=== PATIENT | male | born 1935 | race Caucasian/White ===

== ENCOUNTER 2023-11-28 22:30 | Inpatient (IN) | payer MEDICARE, BC ==
[~2023-11-28] VITALS: Ht 180.3 cm; Wt 93.5 kg
[2023-11-28 23:33] VITALS: BP 145/76; PULSE 91; TEMP 98.1
[2023-11-28] MEDS ORDERED: hydrALAZINE 20 MG/ML 1 ML VIAL IV PRN (23:45)
[2023-11-28] MEDS ORDERED: Acetaminophen 325 MG TAB PO PRN (23:45)
[2023-11-28] MEDS ORDERED: Ondansetron 4 MG/2 ML VIAL IV PRN (23:45)
--- NOTE | 2023-11-28 23:49 | NUR ---
PT ADMITTED TO ROOM 343. PER EMS CART. A&OX4. CBI INFUSING TO 3WAY CATHETER. DARK RED BLOOD WITH SMALL CLOTS. NS IRRIGATION INFUSING AT STEADY PACE. IV LFA. NS INFUSING NOW AR 75CC/HR. NAUSEATED X2 1 BROWNISH EMESIS. ORIENTED TO ROOM. CALL LIGHT. BED ALARMS, PHONE. DAUGHTER / FRIEND NOW HERE. PT DENIES PAIN AT PRESENT TIME. CALL LIGHT IN REACH. BED ALARM SET.
[2023-11-28] MEDS ORDERED: SYNTHROID0.088 MG/T PO (23:56)
[2023-11-28] MEDS ORDERED: LIPITOR 10MG10 MG PO (23:58)
[2023-11-29] VITALS (18 sets, daily range): BP systolic 120–150; BP diastolic 57–74; PULSE 67–93; TEMP 97.8–99.1
[2023-11-29] MEDS ORDERED: LOPRESSOR 550 MG/TAB PO (00:11)
[2023-11-29] MEDS ORDERED: HYTRIN 5MG C5 MG/CAP PO (00:12)
[2023-11-29] MEDS ORDERED: SINGULAIR 110 MG/TAB PO (00:21)
[2023-11-29] MEDS ORDERED: ASPIRIN 81M81 MG/TA2 PO (00:23)
[2023-11-29] MEDS ORDERED: B-121000 MCG PO (00:24)
[2023-11-29] MEDS ORDERED: INFANTS AQU400 IU/ML PO (00:27)
[2023-11-29] MEDS ORDERED: CALCIUM 600600 MG PO (00:29)
[2023-11-29 00:30] LABS: BASO % 0.2 % (0.0-2.0); EOS % 0.1 % (0.0-4.0); GRAN # 12.5 K/mm3 (1.4-6.5); GRAN % 86.4 % (42.2-75.2); HEMOGLOBIN 11.2 g/dl (13.5-18.0); LYMPH # 0.6 K/mm3 (1.2-3.4); LYMPH % 4.3 % (20.0-51.0); MEAN CELL VOLUME 87 fl (80.0-100.0); MEAN CORPUSCULAR HEMOGLOBIN 30 pg (27-31); MEAN CORPUSCULAR HGB CONC 35 g/dl (33.0-37.0); MEAN PLATELET VOLUME 10.5 fl (7.4-10.4); MONO # 1.2 K/mm3 (0.1-0.6); MONO % 8.2 % (1.7-9.3); PLATELET COUNT 118 K/mm3 (130-400); REDCELL DISTRIBUTION WIDTH-CV 13.4 % (11.5-14.5)
[2023-11-29] MEDS ORDERED: Acetaminophen 325 MG TAB PO PRN (00:30)
[2023-11-29] MEDS ORDERED: NS 1,000 ML IV SCH ×2 (00:30→08:00)
[2023-11-29 00:33] LABS: HEMATOCRIT 32.1 % (42.0-52.0)
[2023-11-29 00:40] LABS: ALBUMIN 3.1 gm/dL (3.4-4.8); BILIRUBIN,TOTAL 1.2 mg/dL (0.2-1.2); CALCIUM 8.3 mg/dL (8.4-10.2); CREATININE, serum 6.34 mg/dL (0.72-1.25); TOTAL PROTEIN 6.1 gm/dL (6.2-8.1)
--- NOTE | 2023-11-29 00:54 | NUR ---
PT VOMITED X2 AND HAS HICCOUGHS. SEE MAR FOR COMPAZINE IV GIVEN.
[2023-11-29] MEDS ORDERED: NS Irrig Soln 3000 ML SOLN IRP PRN (01:00)
[2023-11-29 01:01] LABS: MAGNESIUM 1.9 mg/dL (1.6-2.6)
--- NOTE | 2023-11-29 06:27 | NUR ---
PT HAS SLEPT INTERMITTENTLY. NPO SINCE 2AM PER PAUL HARRIS. DENIES ANY PAIN. CBI INFUSING AT SLOWER RATE. URINE RETURN IS DILUTE PINK. MINIMAL SMALL CLOTS.
[2023-11-29] MEDS ORDERED: dexAMETHasone 10 MG/ML VIAL ONE (07:44)
[2023-11-29] MEDS ORDERED: Ondansetron 4 MG/2 ML VIAL ONE (07:44)
[2023-11-29] MEDS ORDERED: fentaNYL 50 MCG/ML 2 ML VIAL ONE ×2 (07:44→07:58)
[2023-11-29] MEDS ORDERED: Lidocaine PF 2% (20 MG/ML) 5 ML VIAL ONE ×2 (07:44→07:59)
[2023-11-29] MEDS ORDERED: Tranexamic Acid 1,000 MG/10 ML VIAL ONE ×2 (07:44→08:56)
[2023-11-29] MEDS ORDERED: NS 10 ML IV ONE (07:44)
--- NOTE | 2023-11-29 07:55 | NUR ---
PATIENT GOING DOWN TO OR VIA BED. CONSENT OBTAINED AND ON CHART. TICKET TO RIDE ON CHART. IV FLUIDS TO GRAVITY. ALREADY CALLED AND SPOKE WITH DAUGHTER. PATIENT NOW OFF FLOOR.
[2023-11-29] MEDS ORDERED: Phenylephrine 10 MG/ML VIAL ONE (07:58)
[2023-11-29] MEDS ORDERED: Glycopyrrolate 0.2 MG/ML 1 ML VIAL ONE (08:00)
[2023-11-29] MEDS ORDERED: droPERidol 2.5 MG/ML 2 ML VIAL IV PRN (08:00)
[2023-11-29] MEDS ORDERED: HYDROmorphone 2 MG/1 ML VIAL IV PRN (08:00)
[2023-11-29] MEDS ORDERED: hydrALAZINE 20 MG/ML 1 ML VIAL IV PRN ×2 (08:00→08:15)
[2023-11-29] MEDS ORDERED: fentaNYL 50 MCG/ML 2 ML VIAL IV PRN (08:00)
[2023-11-29] MEDS ORDERED: NS 0 ML IV ONE (08:00)
[2023-11-29] MEDS ORDERED: Ondansetron 4 MG/2 ML VIAL IV PRN ×2 (08:00→09:30)
[2023-11-29] MEDS ORDERED: Morphine 4 MG/ML VIAL IV PRN ×2 (08:15→09:30)
[2023-11-29] MEDS ORDERED: Iohexol 350 - 100 ML VIAL URETER-B ONE (08:30)
[2023-11-29] MEDS ORDERED: Lidocaine 2% (20 MG/ML) 20 ML UROJET UR ONE (08:30)
[2023-11-29] MEDS ORDERED: Metoprolol Tartrate 50 MG TAB PO SCH (09:00)
[2023-11-29] MEDS ORDERED: Hyoscyamine 0.125 MG Sublingual TAB SL PRN (09:30)
[2023-11-29] MEDS ORDERED: NS Irrig Soln 3000 ML SOLN IR PRN (09:30)
[2023-11-29] MEDS ORDERED: 1/2 NS 1,000 ML IV SCH (09:30)
--- NOTE | 2023-11-29 10:05 | NUR ---
PATIENT BACK IN ROOM FROM OR, ORIENTED BUT VERY DROWSY. VSS. 02 @ 4L PER NC WITH SATS IN LOW 90'S. PATIENT IS SNORING, WHICH DAUGHTER REPORTS IS NORMAL FOR HIM. NO COMPLAINTS. RAYO TO DD WITH MOD AMOUNTS OF LIGHT PINK URINE, NO CLOTS AT THIS TIME. CBI INFUSING MOD-FAST. IV FLUIDS INFUSING JORGE LEFT FORARM IV. HEAD TO TOE ASSESSMENT COMPLETE. SCD'S TO BLE. DAUGHTER AT BEDSIDE. PATIENT SLEEPING WITH CALL LIGHT IN REACH. BED ALARM ON.
--- NOTE | 2023-11-29 15:39 | NUR ---
humidifier maintenance worker was notified by Dr. Smith that patient may return home tomorrow depending on how he does today. ATA met with patient and family members, Eloisa and Charles, to discuss discharge planning. Patient was sleeping, so Eloisa assisted with answering questions. Patient lives alone in [place]. PCP is Dr. Chauhan. Pharmacy is [facility] in [place]. No issues affording medications. Eloisa (daughter) P# [phone] and Mady (daughter) P# [phone]. Insurance is Medicare A and B and BCBS. DPOA-HC is Eloisa and secondary is Mady. Eloisa reports she gave a copy to patient's nurse for his chart. No DME, patient is currently on oxygen but is not normally on oxygen. Eloisa reports patient is normally independent with all ADLS. Eloisa reports he normally transports back and forth from appointments but Eloisa is going to stay with him for awhile until Mady can come up and then Mady will stay with him for about 2 weeks. Eloisa mentioned patient's PCP wanted to have someone come in to set up his medications. ATA discussed home health and provided the Medicare.gov list of options in his area. Eloisa reports she is familiar with home health and would mention it to her father when he wakes up. Discharge plan: Home possibly with Home Health
[2023-11-29] MEDS ORDERED: Montelukast 10 MG TAB PO SCH (21:00)
[2023-11-29] MEDS ORDERED: Atorvastatin 10 MG TAB PO SCH (21:00)
--- NOTE | 2023-11-29 22:34 | NUR ---
Assessment completed around 194. Pt is sleeping upon entry to his room. Pt wake up and denied having any pain or discomfort. CBI running. Pale yellow clear urine in fraga bag. Upon assessment of catheter it was visualized a sanguineous discharge from the tip of his penis. dressing in place around catheter was seen as well. Used some wipes to clean skin around. Fluids running per L hand. No redness or edema was observed. On O2 at 2L per NC. Belongingns and call light within reach.
[2023-11-30] VITALS (13 sets, daily range): BP systolic 102–150; BP diastolic 50–74; PULSE 56–69; TEMP 97.4–98.5
[2023-11-30 06:15] LABS: BASO % 0.1 % (0.0-2.0); EOS % 0.1 % (0.0-4.0); GRAN # 8.4 K/mm3 (1.4-6.5); GRAN % 85.9 % (42.2-75.2); LYMPH # 0.4 K/mm3 (1.2-3.4); LYMPH % 4.5 % (20.0-51.0); MEAN CELL VOLUME 86 fl (80.0-100.0); MEAN CORPUSCULAR HGB CONC 35 g/dl (33.0-37.0); MEAN PLATELET VOLUME 11.1 fl (7.4-10.4); MONO # 0.8 K/mm3 (0.1-0.6); MONO % 8.5 % (1.7-9.3); PLATELET COUNT 117 K/mm3 (130-400); RED BLOOD COUNT 3.29 M/mm3 (4.20-5.60); REDCELL DISTRIBUTION WIDTH-CV 13.2 % (11.5-14.5)
[2023-11-30 06:23] LABS: HEMATOCRIT 28.4 % (42.0-52.0); HEMOGLOBIN 9.8 g/dl (13.5-18.0); MEAN CORPUSCULAR HEMOGLOBIN 30 pg (27-31)
[2023-11-30 06:43] LABS: CALCIUM 7.3 mg/dL (8.4-10.2); CREATININE, serum 2.37 mg/dL (0.72-1.25)
--- NOTE | 2023-11-30 06:56 | NUR ---
Pt on CBI. Urine remains pale yellow and clear. IV fluids running through L hand. Pt had x2 episodes of Large soft/liquid BM. Pt reported that didn't have a BM since last saturday and he was feeling better. No pain or discomfort was reported. O2 at 1.5L per NC. Belongings and call light within reach.
--- NOTE | 2023-11-30 07:45 | NUR ---
pt a&ox4 resting in bed. meds given and assessment complete. vss. cbi running at a slow rate, yellow urine output in fraga bag. pt denies pain. fluids infusing into left hand IV. no needs at this time. call light in reach.
--- NOTE | 2023-11-30 12:43 | NUR ---
Data: Hospital Plumber'S Helper requested On-call Plumber'S Helper visit this Patient. Patient's Daughter was visiting him. Daughter stated that Patient is a talker and would enjoy a visit. Patient reviewed aspects of his life, family, and Yazidi beliefs with Plumber'S Helper. Assessment: Patient has some anxiety about his current hospitalization; however, Patient has large supportive network and a positive outlook. Patient has strong eternal beliefs. Plan of Care: Plumber'S Helper provided supportive listening and conversation for Patient's extroverted personality. Plumber'S Helper left a not on Plumber'S Helper desk so that Patient might receive another Plumber'S Helper visit Saturday if still admitted. Plumber'S Helper spoke with Patient's Daughter, giving encouragement to her for her stated long-term employment goals. Both thanked Plumber'S Helper for the visit.
[2023-11-30] MEDS ORDERED: Sucralfate 1 G TAB PO SCH (17:15)
--- NOTE | 2023-11-30 21:17 | NUR ---
Patient assessed at this time, see shift assessment, blood pressure 108/50, HR of 59, informed Luis Miguel, the PA and made him aware, received an order to hold terazosin and metoprolol tonight, CBI has been clamped since dayshift, fraga to DD draining orange urine, denies further needs, call light and personal items within reach, will continue to monitor.
[2023-12-01 00:25] VITALS: BP_SYST 129
--- NOTE | 2023-12-01 02:20 | NUR ---
Updated patient's daughter at this time, patient has been doing fine, denies pain or discomfort.
[2023-12-01 03:47] VITALS: BP 149/65; PULSE 62; TEMP 98.3
[2023-12-01 04:02] VITALS: BP_SYST 149
[2023-12-01 07:22] VITALS: BP 116/56; PULSE 55; TEMP 98
[2023-12-01 07:57] LABS: MEAN CELL VOLUME 89 fl (80.0-100.0); MEAN CORPUSCULAR HGB CONC 34 g/dl (33.0-37.0); MEAN PLATELET VOLUME 11.3 fl (7.4-10.4); PLATELET COUNT 114 K/mm3 (130-400); RED BLOOD COUNT 3.04 M/mm3 (4.20-5.60); REDCELL DISTRIBUTION WIDTH-CV 13.4 % (11.5-14.5)
[2023-12-01 08:01] LABS: HEMATOCRIT 26.9 % (42.0-52.0); HEMOGLOBIN 9.2 g/dl (13.5-18.0); MEAN CORPUSCULAR HEMOGLOBIN 30 pg (27-31)
[2023-12-01 08:17] LABS: CALCIUM 7.2 mg/dL (8.4-10.2); CREATININE, serum 1.38 mg/dL (0.72-1.25); POTASSIUM 3.8 mmol/L (3.5-4.5)
[2023-12-01] MEDS ORDERED: LEVSIN0.125 M1 SL (09:18)
[2023-12-01] MEDS ORDERED: AZO-STANDARD95 MG PO (09:19)
[2023-12-01 09:27] VITALS: BP_SYST 116
[2023-12-01 09:27] LABS: BAND 6 % (0-10); BASOPHIL 2 % (0-2); EOSINOPHIL 4 % (0-4); LYMPHOCYTE 16 % (20.0-51.0); NEUTROPHILS 66 % (42.0-75.2); PLATELET ESTIMATE NORMAL (NORMAL)
[2023-12-01 09:28] LABS: HYPOCHROMIA 1+
--- NOTE | 2023-12-01 10:18 | NUR ---
pt a&ox4 sitting up in bed eating breakfast, daughter at bedside. vss. pt denies pain. fraga to dd w orange urine output. scds to ble. INT to left hand patent. fall precautions in place. pt denies needs at this time. call light in reach.
--- NOTE | 2023-12-01 10:25 | NUR ---
Explosive Operator Fuse received call from patient's daughter Eloisa stating they want referral sent to [facility]. Referral information faxed to [phone] shakir Gaspar
[2023-12-01 11:08] VITALS: BP 102/62; PULSE 61; TEMP 98.9
--- NOTE | 2023-12-01 12:50 | NUR ---
discharge instructions given to pt and daughter, all questions answered. pt escorted to personal vehicle by wheelchair.
--- NOTE | 2023-12-02 09:50 | NUR ---
blow off worker left message with Myah at [facility] inquiring if they can accept patient and that patient discharged on 12/01/23 with orders.
--- NOTE | 2023-12-02 14:11 | NUR ---
cloth printing utility worker was informed that [facility] could not provide PT/OT for pt. ATA called pt's phone and he gave the phone to his daughter, Mady to discuss. Mady chose [facility] from the previous provided Medicare.gov list. Mady asked to have her number called for scheduling. ATA faxed [facility] a referral and provided Mady's number. Discharge Plan: Home with HH
--- NOTE | 2023-12-02 14:43 | NUR ---
driver utility worker recieved a call from Morenita at [facility] who reports in the [place] area, their PT/OT is 2-3 weeks out. ATA called daughter, Mady and she chose [facility] . ATA faxed a referral to [facility].
--- NOTE | 2023-12-03 14:28 | NUR ---
hall worker was informed [facility] cannot provide PT/OT in [place] due to staffing. [facility], [facility], and [facility] are all denials. ATA called [facility] [place] and was informed they do not have enough staffing out of the [place] office at this time to see pt. hall worker left a voicemail to [facility]. SW was later informed they can provide services, but this was not an initial preference. ATA spoke with daughter, Mady and informed her. She stated she did speak with [place] and they suggested outpatient PT/OT at [facility]. Mady would like to pursue this. ATA advised pt will have to be safely and stable to go there. She stated he is doing well. ATA advised she will reach out to the PCP, Dr. Modi [phone] and see if they can write orders. ATA left a voicemail with Dr. Modi's nurse. ATA later called back and spoke with the nurse. ATA provided the above information regarding no success with HH services in their area. She reports she will discuss with the and see if she can write orders. RN states patient's appointment is on 12/23/23 and they can further discuss there. ATA spoke with [facility] [phone] who provided they can accept referrals for outpatient PT/OT at this time if patient wanted services. Discharge Plan: home, waiting on PCP follow-up
== END 2023-12-01 13:00 | disposition home or self-care (01) | DRG 660 ==
LOC: SURG 22:30
PROVIDERS: Physician Assistant; Urology; ADMIT Internal Medicine
PROC: 0T788DZ Dilation of Bilateral Ureters with Intraluminal Device, Via Natural or Artificial Opening Endoscopic (ICD-10-PCS; principal; 2023-11-29 08:30)
PROC: 0W3R8ZZ Control Bleeding in Genitourinary Tract, Via Natural or Artificial Opening Endoscopic (ICD-10-PCS; 2023-11-29 08:30)
PROC: 0TCB8ZZ Extirpation of Matter from Bladder, Via Natural or Artificial Opening Endoscopic (ICD-10-PCS; 2023-11-29 08:30)
DX: N17.9 Acute kidney failure, unspecified (principal); N13.8 Other obstructive and reflux uropathy; N14.11 Contrast-induced nephropathy; T50.8X5A Adverse effect of diagnostic agents, initial encounter; I10 Essential (primary) hypertension; E78.5 Hyperlipidemia, unspecified; I25.10 Atherosclerotic heart disease of native coronary artery without angina pectoris; R31.9 Hematuria, unspecified; N13.30 Unspecified hydronephrosis; E03.9 Hypothyroidism, unspecified; D69.6 Thrombocytopenia, unspecified; D64.9 Anemia, unspecified; M19.90 Unspecified osteoarthritis, unspecified site; N40.1 Benign prostatic hyperplasia with lower urinary tract symptoms; R33.8 Other retention of urine; J30.2 Other seasonal allergic rhinitis; Z95.1 Presence of aortocoronary bypass graft; Z85.46 Personal history of malignant neoplasm of prostate; Z79.82 Long term (current) use of aspirin; Z79.899 Other long term (current) drug therapy; Z79.890 Hormone replacement therapy; Z23 Encounter for immunization
CPT/HCPCS: C1769; C2617; J0690; J0780; J1100; J2371; J2405; J2704; J3010; J7030; Q9967

== ENCOUNTER 2024-01-01 19:51 | Inpatient (IN) | payer MEDICARE, BC ==
[~2024-01-01] VITALS: Ht 180.3 cm; Wt 88.9 kg
[~2024-01-01 19:51] MED LIST: ASPIRIN 81M81 MG/TA2 PO; AZO-STANDARD95 MG PO; B-121000 MCG PO; CALCIUM 600600 MG PO; HYTRIN 5MG C5 MG/CAP PO; INFANTS AQU400 IU/ML PO; LEVSIN0.125 M1 SL; LIPITOR 10MG10 MG PO; LOPRESSOR 550 MG/TAB PO; SINGULAIR 110 MG/TAB PO; SYNTHROID0.088 MG/T PO
[2024-01-01 21:00] VITALS: BP_SYST 165
--- NOTE | 2024-01-01 21:57 | NUR ---
PT ARRIVES VIA EMS FROM [place]. IS ALERT AND ORIENTED X4. HAS INT TO LAC.
[2024-01-01 22:00] VITALS: BP 165/83; PULSE 83; TEMP 98.5
--- NOTE | 2024-01-01 22:45 | NUR ---
DR SELLERS AT BEDSIDE, UNABLE TO GET RAYO INSERTED, PT WILL BE GOING TO OR. CONSENTS SIGNED.
[2024-01-01] MEDS ORDERED: hydrALAZINE 20 MG/ML 1 ML VIAL IV PRN (23:00)
[2024-01-01] MEDS ORDERED: Ondansetron 4 MG/2 ML VIAL IV PRN ×2 (23:00→23:15)
[2024-01-01] MEDS ORDERED: HYDROmorphone 1 MG/1 ML SYRINGE [PACU/SDC ONLY] IV PRN (23:00)
[2024-01-01] MEDS ORDERED: fentaNYL 50 MCG/ML 1 ML SYRINGE/VIAL [PACU/SDC ONLY] IV PRN (23:00)
[2024-01-01] MEDS ORDERED: Morphine 2 MG/1 ML VIAL [PACU/SDC ONLY] IV PRN (23:00)
[2024-01-01] MEDS ORDERED: Meperidine 50 MG/ML 1 ML VIAL IV PRN (23:00)
[2024-01-01] MEDS ORDERED: LR 1,000 ML IV SCH (23:00)
[2024-01-01] MEDS ORDERED: Ondansetron 4 MG/2 ML VIAL ONE (23:03)
[2024-01-01] MEDS ORDERED: fentaNYL 50 MCG/ML 2 ML VIAL ONE (23:03)
[2024-01-01] MEDS ORDERED: Lidocaine PF 2% (20 MG/ML) 5 ML VIAL ONE (23:03)
[2024-01-01] MEDS ORDERED: 1/2 NS 1,000 ML IV SCH (23:15)
[2024-01-01] MEDS ORDERED: Morphine 4 MG/ML VIAL IV PRN (23:15)
[2024-01-01] MEDS ORDERED: Magnes Hydrox (MOM) 80 MG/ML 30 ML CUP PO PRN (23:15)
[2024-01-01] MEDS ORDERED: NS Irrig Soln 3000 ML SOLN IR PRN (23:15)
--- NOTE | 2024-01-01 23:15 | NUR ---
PT TO OR PER BED.
[2024-01-02] VITALS (18 sets, daily range): BP systolic 95–132; BP diastolic 58–72; PULSE 57–101; TEMP 97.3–101.9
--- NOTE | 2024-01-02 00:25 | NUR ---
RETURNS FROM OR PER BED. IS AWAKE AND ALERT. DENIES PAIN AT THIS TIME. HAS RAYO TO BSD WITH CBI SLOW, URINE SLIGHT PINK. HAS IVF TO LAC INFUSING WITHOUT PROBLEM. APPLE JUICE PROVIDED.
--- NOTE | 2024-01-02 03:07 | NUR ---
PT WITH EYES CLOSED, RESTING WELL. CBI SLOW, URINE SLIGHT PINK.
[2024-01-02] MEDS ORDERED: ceFAZolin 2 G in Water For Injection,Sterile 20 ML IV SCH (08:00)
--- NOTE | 2024-01-02 08:31 | NUR ---
PATIENT ALERT AND ORIENTED X4. VSS. PATIENT HERE FOR HEMATURIA, CYSTO/CLOT EVAC. PATIENT DENIES ANY PAIN AT THIS TIME. PATIENT DENIES ANY BLADDER SPASMS. IV TO LEFT AC INT AND FLUSHES WELL. CBI RUNNING SLOW AND IS LIGHT PINK IN COLOR AND CLOUDY. PATIENT TOLERATING PO, DENIES ANY NAUSEA. PATIENT RESTING IN BED CALL LIGHT IN REACH.
[2024-01-02] MEDS ORDERED: Hyoscyamine 0.125 MG Sublingual TAB SL PRN (13:15)
[2024-01-02] MEDS ORDERED: Acetaminophen 500 MG TAB PO PRN (13:15)
--- NOTE | 2024-01-02 13:50 | NUR ---
D: Initial visit: Tablet Making Machine Operator stopped by room on rounds. Pt was resting and content with friend in the room. A: Pt has no needs right now P: Tablet Making Machine Operator informed pt that if he needed anything from the gravure printing machinist area to let his nurse know. Tablet Making Machine Operator will follow up as needed.
--- NOTE | 2024-01-02 15:59 | NUR ---
Poultry Helper met with patient to discuss discharge planning. Patient lives alone in [place] and sees Dr. Vernon for primary care. Patient gets his medications from [facility] with no difficulties. Patient uses a rollator for ambulation and is independent with ADLS. Patient hasn't been driving recently but stated he has people that can take him where he needs to go. Patient reported his daughter, Eloisa (ph#[phone]) is his DPOA-HC. Patient plans to return home at time of discharge. Discharge Plan: Home
[2024-01-02 16:07] LABS: HEMOGLOBIN 10.8 g/dl (13.5-18.0); MEAN CELL VOLUME 87 fl (80.0-100.0); MEAN CORPUSCULAR HEMOGLOBIN 30 pg (27-31); MEAN CORPUSCULAR HGB CONC 34 g/dl (33.0-37.0); MEAN PLATELET VOLUME 10.3 fl (7.4-10.4); PLATELET COUNT 135 K/mm3 (130-400); RED BLOOD COUNT 3.62 M/mm3 (4.20-5.60); REDCELL DISTRIBUTION WIDTH-CV 12.5 % (11.5-14.5)
[2024-01-02 16:10] LABS: HEMATOCRIT 31.4 % (42.0-52.0)
--- NOTE | 2024-01-02 18:50 | NUR ---
PATIENT RESTING IN BED WITH TV ON WITH FAMILY AT BEDSIDE WITH NO ACUTE DISTRESS NOTED. PATIENT ON ROOM AIR. INT TO LEFT AC INTACT WITH NO COMPLICATIONS NOTED. CBI RUNING INTO RAYO CATH WITH NO COMPLICATIONS NOTED AND CLEAR YELLOW URINE WITH SEDIMENT NOTED. PATIENT DENIES ANY NEEDS AT THIS TIME. PATIENT CARE ASSUMED FROM EVELYN AND LARRY. BED IN LOW POSITION WITH WHEELS LOCKED WITH RAILS UP X3 AND CALL LIGHT WITHIN REACH.
--- NOTE | 2024-01-02 20:40 | NUR ---
PATIENT RESTING IN BED SITTING UP WITH HEAD OF BED ELEVATED WITH TV ON WITH NO FAMILY PRESENT WITH NO ACUTE DISTRESS NOTED. PATIENT ON ROOM AIR. INT TO LEFT AC INTACT WITH NO COMPLICATIONS NOTED. CBI INFUSING INTO RAYO CATH WITH YELLOW URINE AND LIGHT ORANGE SEDIMENT NOTED. ASSESSMENT AND MEDICATION ADMINISTRATION COMPLETED AT THIS TIME. PATIENT TOLERATED WELL. PATIENT DENIES ANY NEEDS AT THIS TIME. BED IN LOW POSITION WITH WHEELS LOCKED WITH RAILS UP X3 AND CALL LIGHT WITHIN REACH.
[2024-01-02] MEDS ORDERED: Metoprolol Tartrate 50 MG TAB PO SCH (21:20)
--- NOTE | 2024-01-02 23:45 | NUR ---
NEW CBI BAG NS STARTED AT THIS TIME.
[2024-01-03] VITALS (10 sets, daily range): BP systolic 101–133; BP diastolic 62–79; PULSE 54–64; TEMP 97.8–98.6
--- NOTE | 2024-01-03 07:30 | NUR ---
PATIENT IS A&O AND SITTING UP IN BED. NO COMPLAINTS. RAYO TO DD WITH MOD AMOUNTS OF CLEAR YELLOW URINE WITH SEDIMENT NOTED. NO BLOOD OR CLOTS NOTED. CBI INFUSING AT SLOW TO MOD RATE. PATIENT TOLERATING GENERAL DIET WELL. LEFT AC IV TO INT. HEAD TO TOE ASSESSMENT WNL. PATIENT REPORTED NEEDING HIS AM DOSE OF VITAMIN B12 OR HE HAS ISSUES WITH HIS FACE GOING NUMB. NOTIFIED PROVIDER, SEE ORDER FOR MED ON NOV. CBI NOW CLAMPED PER WHO WILL ROUND OVER LUNCH OR EARLY THIS AFTERNOON. PATIENT ORDERING BREAKFAST. STUDENT NURSE WORKING WITH PATIENT TODAY, SEE CHARTING. NO OTHER NEEDS AT THIS TIME. CALL LIGHT IN REACH.
--- NOTE | 2024-01-03 07:31 | NUR ---
RECEIVED REPORT FROM FLOOR NURSE UPON ARRIVAL TO THE UNIT. PATIENT RESTING IN BED. ALERT AND ORIENTED. DENIES CONCERNS AT THIS TIME. PATIENT ORDERING BREAKFAST UPON LEAVING THE ROOM. CALL LIGHT WITHIN REACH.
[2024-01-03] MEDS ORDERED: Cyanocobalamin (Vit B-12) 1,000 MCG TAB PO SCH (09:00)
--- NOTE | 2024-01-03 11:50 | NUR ---
PATIENT'S URINE IS STILL CLEAR YELLOW WITH SOME SEDIMENT NOTED. NO BLOOD OR CLOTS. CBI STILL CLAMPED FROM THIS AM PER . PATIENT INCREASING ORAL FLUIDS AND TOLERATING WELL. NO C/O N/V OR PAIN. PATIENT RESTING WITH NO NEEDS AT THIS TIME.
--- NOTE | 2024-01-03 12:35 | NUR ---
MAKING ROUNDS, SEE NOTES.
[2024-01-03] MEDS ORDERED: Nitrofurantoin (Mono/Macro) 100 MG CAP PO SCH (12:36)
--- NOTE | 2024-01-03 13:50 | NUR ---
PATIENT AMBULATING IN HALLS WITH NURSING AFTER LUNCH. PATIENT REPORTS IT FEELS GOOD TO WALK AND TOLERATED ACTIVITY WELL. PATIENT BACK IN ROOM RESTING AND VISITING WITH TWO FRIENDS. EMPTIED 1,000CC OF YELLOW URINE WITH SEDIMENT. NO BLOOD OR CLOTS.
[2024-01-04] VITALS: BP_SYST 133
[2024-01-04 04:00] VITALS: BP 138/78; PULSE 62; TEMP 97.8
--- NOTE | 2024-01-04 05:30 | NUR ---
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 PT DENIED GENERAL PAIN, CHEST PAIN, PALPITATIONS, SOB, N,V,D OR DIZZINESS. pt'S CATHETER PRODUCED LIGHT YELLOW URINE WITH NO BLOOD OR CLOTS. CALL LIGHT WITHIN REACH.
[2024-01-04 07:33] VITALS: BP 133/74; PULSE 58; TEMP 97.8
[2024-01-04 09:00] VITALS: BP_SYST 133
--- NOTE | 2024-01-04 09:35 | NUR ---
PATIENT ALERT AND ORIENTEX X4. VSS. PATIENT HERE FOR HEMATURIA/ S/P RAYO EXCHANGE/CYSTO/FULG OF BLEEDERS. RAYO TO DD WITH YELLOW OUTPUT WITH LIGHT SEDIMENT. PATIENT DENIES ANY PAIN OR DISCOMFORT. IV TO LEFT AC INT. PATIENT DENIES ANY FURTHER NEEDS. CALL LIGHT IN REACH.
--- NOTE | 2024-01-04 12:07 | NUR ---
Data: Patient and Friend accepted Staff Therapist visit. Patient reviewed life, especially the Family and Friends who have meaning in his life. Assessment: Patient expressed gratitude for his medical care, and especially the care of his Doctor. Plan of Care: Staff Therapist provided supportive listeing and prayer for healing; safety while traveling home if discharged today; and for the blessings of Family and Friends. Chaplains will remain available as needed/requested while Patient is admitted to this hospital.
[2024-01-04] MEDS ORDERED: MACROBID 1100 MG/CAP PO ×2 (13:43→14:02)
[2024-01-04 13:45] VITALS: BP_SYST 133
[2024-01-04] MEDS ORDERED: MACRODANTIN100 PO (13:56)
--- NOTE | 2024-01-04 14:37 | NUR ---
DISCHARGE INSTRUCTIONS PROVIDED. PATIENT EDUCATION GIVEN ON RAYO CATH CARE, CLEANING, AND EMTYPING. FOLLOW UP APPOINTMENT DISCUSSED. IV DC'D. MEDICATIONS REVIEWED. PATIENT DENIES ANY QUESTIONS OR CONCERNS. PATIENT ESCORTED OUT VIA WHEELCHAIR.
[2024-01-04] MEDS ORDERED: Nitrofurantoin (Mono/Macro) 100 MG CAP PO SCH (21:00)
== END 2024-01-04 14:38 | disposition home or self-care (01) | DRG 661 ==
LOC: JCC 19:51 → SURG 22:05
PROVIDERS: ADMIT Urology
PROC: 0V508ZZ Destruction of Prostate, Via Natural or Artificial Opening Endoscopic (ICD-10-PCS; 2024-01-01)
PROC: 0T5C8ZZ Destruction of Bladder Neck, Via Natural or Artificial Opening Endoscopic (ICD-10-PCS; 2024-01-01)
PROC: 0TCB8ZZ Extirpation of Matter from Bladder, Via Natural or Artificial Opening Endoscopic (ICD-10-PCS; 2024-01-01)
PROC: 0T788DZ Dilation of Bilateral Ureters with Intraluminal Device, Via Natural or Artificial Opening Endoscopic (ICD-10-PCS; principal; 2024-01-01 23:30)
DX: R31.0 Gross hematuria (principal); R33.9 Retention of urine, unspecified; I25.10 Atherosclerotic heart disease of native coronary artery without angina pectoris; I10 Essential (primary) hypertension; E78.5 Hyperlipidemia, unspecified; M19.90 Unspecified osteoarthritis, unspecified site; E03.9 Hypothyroidism, unspecified; D69.6 Thrombocytopenia, unspecified; Z85.46 Personal history of malignant neoplasm of prostate; Z79.890 Hormone replacement therapy; Z79.82 Long term (current) use of aspirin; Z79.899 Other long term (current) drug therapy; Z95.1 Presence of aortocoronary bypass graft
CPT/HCPCS: C1769; G0378; G0379; J0690; J2270; J2405; J2704; J3010; J7120

== ENCOUNTER 2024-01-15 19:10 | Emergency (ER) | payer MEDICARE, BC ==
[~2024-01-15] VITALS: Ht 180.3 cm; Wt 90.9 kg
[~2024-01-15 19:10] MED LIST changes: +MACROBID 1100 MG/CAP PO; +MACRODANTIN100 PO
[2024-01-15 19:15] VITALS: TEMP 98.8
[2024-01-15] MEDS ORDERED: Lidocaine 2% (20 MG/ML) 20 ML UROJET UR ONE (19:45)
[2024-01-15] MEDS ORDERED: CIPRO 500MG TA500 MG PO (22:26)
[2024-01-15] MEDS ORDERED: Ciprofloxacin 500 MG TAB PO ONE (22:30)
[2024-01-15 23:06] VITALS: BP 124/70; PULSE 76
== END 2024-01-15 23:07 | disposition home or self-care (01) ==
LOC: COL.ER 19:10
DX: R33.9 Retention of urine, unspecified (principal)